=== PATIENT | female | born 1955 | race Caucasian/White ===

== ENCOUNTER 2018-05-14 12:45 | Observation (INO) | payer OTHER ==
[2018-05-14] MEDS ORDERED: KETOROLAC TROMETHAMINE 60 MG/2 ML VIAL IM ONE ×2 (13:34→13:37)
--- NOTE | 2018-05-14 13:36 | ERNOTE ---
Lower Extremity HPI - Narrative Date of Service: 05/14/18 - General Lower Extremities Pain: leg: bilateral - lymphadema Time Seen by Provider: 05/14/18 13:08 Source: patient, family Exam Limitations: no limitations - Immun/Allergies/Home Medications Immunizations: IMMUNIZATION HX Immunizations Up to Date No History of Influenza Vaccine No Hx Pneumococcal Vaccination No Allergies/Adverse Reactions: Allergies Allergy/AdvReac Type Severity Reaction Status Date / Time cat dander Allergy Verified 05/14/18 12:55 hydrocodone AdvReac Mild Headache Verified 05/14/18 12:55 Tetracyclines AdvReac Mild Nausea Verified 05/14/18 12:55 Home Medications: HOME MEDICATIONS Acetaminophen 05/14/18 [Last Taken Unknown] Benazepril HCl 10 mg PO DAILY 05/14/18 [Last Taken Unknown] Centrum Adults Tablet 05/14/18 [Last Taken Unknown] Clindamycin HCl [Cleocin] 3 tab PO QID #96 cap 05/14/18 [Last Taken Unknown] Ibuprofen 05/14/18 [Last Taken Unknown] - History of Present Illness Narrative: Patient complains of lymphadema of bilateral lower extremities that she has had for several yrs. 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 Has been to several clinics but has not continued treatment. States her has been dressing her legs trying to keep them dry. States she is not able to get into her family provider so came to the ER for evaluation. Complains that her legs are weepy and have had some ulcerations. Denies any dyspnea or chest pain. Occurred: other - Has been present for several yrs. Prior Treament: Reports: similar symptoms before Review of Systems - Review of Systems Constitutional: Present: no symptoms reported Respiratory: Present: no symptoms reported Cardiology: Present: no symptoms reported Gastrointestinal/Abdominal: Present: no symptoms reported Genitourinary: Present: no symptoms reported Musculoskeletal: Present: no symptoms reported Skin: Present: See HPI, other - Bilateral lower swelling and drainage as described. Denies any distal sensory loss. Neurological: Present: no symptoms reported Endocrine: Present: no symptoms reported Hematologic/Lymphatic: Present: no symptoms reported Psych: Present: no symptoms reported Medical History (Last Updated 05/14/18 @ 13:01 by Angelito Pope RN) Acquired lymphedema of leg HTN (hypertension) History of tonsillectomy Obesity Surgical History: Surgical History (Last Updated 05/14/18 @ 13:01 by Angelito Pope RN) History of exploratory laparotomy History of lymph node excision Social History: Preferred Language Kyrgyz Do you have any faith or Yes: babtist cultural preference? Smoking Status Current every day smoker Have you smoked in the past 12 Yes months Do you dip or chew tobacco No Alcohol Use rarely Drug Use none Physical Exam - Physical Exam General Appearance: Present: wd/wn, alert Eye Exam: Normal inspection: bilateral, PERRL: bilateral, EOMI: bilateral Neck: Present: normal inspection, nontender, full range of motion Respiratory: Present: no respiratory distress, normal breath sounds, no accessory muscle use, chest nontender, lungs clear Cardiovascular/Chest: Present: regular rate, rhythm, no murmur, normal peripheral pulses Peripheral Pulses: N=norm/S=strong/W=weak/B=bound/A=absent: Radial (R): Normal, Radial (L): Normal, Dorsalis-pedis (R): Normal, Dorsalis-pedis (L): Normal Gastrointestinal/Abdominal: Present: normal bowel sounds, nontender - Obese Extremity Exam: Present: other - Right lower extremity extending from ankle to proximal tibia significant edema with erythema and macerated tissue present. Mid posterior calf 2 stage 2 ulcerations both 1cm in size. No significant drainage present. Mildly erythematous. LLE from ankle to proximal tibia very similar presentation. However has one lateral midcalf ulceration 2.5cm stage 2. No significant drainage or signs of infection. Neurological Exam: Present: alert, oriented, normal mood/affect, no motor/ sensory deficits Skin Exam: Present: other - See extremity exam ED Progress - Results and Orders Patient's Lab Results:: I have reviewed the patient's lab results. - Vital Signs Patient's Vital Signs:: I have reviewed the patient's vital signs. Vital Signs: Vital Signs 05/14/18 12:45 Temperature 36.5 C Pulse Rate 100 Blood Pressure 137/73 O2 Sat by Pulse Oximetry 96 - EKG EKG: NSR, premature ventricular contraction - Progress/Reassessment Chief Complaint: Lower Extremity Pain/ Injury Progress:: Unchanged - Transfer of Care Additional Notes: Discussed patient with Dr. Kenny who agrees patient would benefit from observation stay for IV antibiotics and IV fluids. Further treatment and care will be per Dr. Kenny. Departure Clinical Impression: Acquired lymphedema of lower extremity, Cellulitis and abscess of left leg, Hyperkalemia Acute kidney failure Qualifiers: Acute renal failure type: unspecified Qualified Code(s): N17.9 - Acute kidney failure, unspecified - Departure Disposition: Still a patient Condition: Good
[2018-05-14 13:37] LABS: Hematocrit 46.5 % (37.0-47.0); Hemoglobin 15.4 gm/dL (12.5-16.0); Mean Cell Volume 94.1 fl (78-100); Mean Corpuscular Hemoglobin 31.2 pg (27-31); Mean Corpuscular Hgb Conc 33.1 g/dl (32-36); Mean Platelet Volume 9.9 fl (8-12.5); Neutrophil # 13.5 K/mm3 (1.3-6.0); Neutrophil % 83.9 % (42-75.0); Platelet Count 287 K/mm3 (150-450); Red Blood Count 4.94 M/mm3 (4.2-5.4); Red Cell Distribution Width 13.1 % (11.5-14.0)
[2018-05-14 13:46] LABS: Albumin * 3.3 gm/dl (3.4-5.0); Anion Gap 15.1 mmol/L (6.8-13.8); BUN/Creatinine Ratio 37.4 (9.0-21.6); Bilirubin, Total 0.3 mg/dL (0.0-1.1); Ca. Corrected For Albumin 10.5 mg/dL (8.4-10.2); Calcium * 10.3 mg/dL (7.9-10.9); Carbon Dioxide 23.5 mmol/L (24-32.6); Potassium 5.6 mmol/L (3.4-4.6); Total Protein 8.5 gm/dL (6.2-8.2)
[2018-05-14 13:52] LABS: Hemoglobin A1C 6.2 % (4.00-6.0)
[2018-05-14] MEDS ORDERED: NORMAL SALINE 1,000 ML IV PRN (14:19)
[2018-05-14] MEDS ORDERED: FUROSEMIDE 10 MG/ML VIAL IV ONE (14:20)
[2018-05-14] MEDS ORDERED: CLINDAMYCIN PHOSPHATE 600 MG in DEXTROSE 5 % IN WATER 100 ML IV ONE ×2 (14:21)
[2018-05-14] MEDS: NORMAL SALINE 1,000 ML IV PRN ×2 (14:58→21:55)
[2018-05-14] MEDS: traMADol HCL 50 MG TABLET PO PRN ×2 (16:32→20:39)
--- NOTE | 2018-05-14 19:54 | HP ---
Chief Complaint - Chief Complaint Date of Service: 05/14/18 Time of Service: 19:53 Chief Complaint: cellulitis, weeping lymphedema History of Present Illness: 62 years old female adm to the hospital from ER with reports of painful lower extremities. PMH significant for lymphedema of bilateral lower extremities > 12years, morbid obesity and Hypertension. pt stated she was last seen by PCP in Jul 2017 when she had several blisters that form ulceration and she had both legs debrided in [facility]. Since then she has been struggling with the legs and use Neosporin and gauze as dressing to the legs. She was getting therapy, wound care and massage at the center in [place]. The treatment helped a lot, but stopped several years ago due to insurance. Today she was seen in ER because the pain is unbearable, " it feels like my legs are on fire,striking sharp pain in the legs and uncontrollable drainage. In ER blood cultures obtained, cleocin given. Will continue IVF, antbx and obtain wound cultures. Plan of care discussed with pt she verbalized understanding and agrees. Medical History (Last Reviewed 05/14/18 @ 16:11 by Caro Wooten RN) Acquired lymphedema of leg HTN (hypertension) History of tonsillectomy Obesity Surgical History: Surgical History (Last Reviewed 05/14/18 @ 16:11 by Caro Wooten RN) History of exploratory laparotomy History of lymph node excision Family History: Family History (Last Updated 05/14/18 @ 20:38 by LOREN Monroe) Father Diabetes Mother Breast cancer Social History: Patient Lives/Resources With Parents Utilized Preferred Language Tuvaluan Do you have any orthodoxy or No cultural preference? Smoking Status Current every day smoker Have you smoked in the past 12 Yes months Do you dip or chew tobacco No Alcohol Use rarely Drug Use none smokes 1-2 packs daily Review Of Systems (GEN) - Review of Systems Generalized/Overall Review: Present: No Symptoms Reported EENTM: Present: No Symptoms Reported Respiratory: Present: Cough - smokers cough Cardiac: Present: No Symptoms Reported Abdominal: Present: No Symptoms Reported Genitourinary: Present: No Symptoms Reported Musculoskeletal: Present: No Symptoms Reported Neurological: Present: Weakness - chronic ans uses a munoz Skin: Present: Other - cellulitis and chronic lymphedema bilateral lower extremities >12years. weeping ulcers to right lateral calf Endocrine: Present: No Symptoms Reported Immunizations: IMMUNIZATION HX Immunizations Up to Date No History of Influenza Vaccine No Hx Pneumococcal Vaccination No Allergies/Adverse Reactions: Allergies Allergy/AdvReac Type Severity Reaction Status Date / Time cat dander Allergy Verified 05/14/18 16:12 hydrocodone AdvReac Mild Headache Verified 05/14/18 16:12 Tetracyclines AdvReac Mild Nausea Verified 05/14/18 16:12 Home Medications: HOME MEDICATIONS Benazepril HCl 10 mg PO DAILY 05/14/18 [Last Taken Unknown] Ibuprofen [Motrin Ib] 400 mg PO Q6H PRN 05/14/18 [Last Taken Unknown] Multivitamin/Iron/Folic Acid [Centrum Adults Tablet] 1 each PO DAILY 05/14/18 [ Last Taken Unknown] Exam - Exam Vital Signs: Vital Signs - Last Taken Temp 36.2 C 05/14/18 15:37 Pulse 98 05/14/18 15:37 Resp 20 05/14/18 15:37 BP 133/59 05/14/18 15:37 Pulse Ox 94 05/14/18 15:37 Constitutional: Present: Alert, Oriented x3, Cooperative, Middle aged, Morbidly obese ENT Exam: Present: hearing grossly normal Eye Exam: bilateral eye: normal inspection Neck: Present: full range of motion Back Exam: Present: normal inspection Breasts: Present: Exam deferred Respiratory: Present: chest non-tender, no respiratory distress, no accessory muscle use, decreased breath sounds, rhonchi Cardiovascular/Chest: Present: normal peripheral pulses, regular rate, rhythm, no chest tenderness, no edema Peripheral Pulses: dorsalis-pedis (R): 2+, dorsalis-pedis (L): 2+ Abdomen: Present: Normal bowel sounds, soft, nontender, nondistended /Rectal: Present: Exam deferred Extremity: Present: calf tenderness, inflammation, lower extremity edema, pedal edema Skin Exam: Present: other - cellulitis,weeping lymphedema and abscess, inflammation Neurologic: Present: normal mood/affect, oriented x 3 Appearance: Present: appropriate appearance Eye contact: Present: cooperative, good eye contact Thoughts: Present: normal thought pattern Diagnostic Studies: Abnormal Lab Results 05/14/18 05/14/18 05/14/18 Range/Units 13:29 13:29 13:29 WBC 16.0 H (4.0-10.5) K/mm3 MCH 31.2 H (27-31) pg Immature Gran % (Auto) 0.60 H (0.001-0.429) % Immature Gran # (Auto) 0.09 H (0.000-0.0310) K/mm3 Neutrophils % 83.9 H (42-75.0) % Lymphocytes % 8.0 L (20-51) % Neutrophils # 13.5 H (1.3-6.0) K/mm3 Lymphocytes # 1.29 L (1.5-3.5) k/mm3 Sodium 130 L (132-142) mmol/L Potassium 5.6 H (3.4-4.6) mmol/L Carbon Dioxide 23.5 L (24-32.6) mmol/L Anion Gap 15.1 H (6.8-13.8) mmol/L BUN 92 H (3-23) mg/dL Creatinine 2.46 H (0.4-1.4) mg/dL Est GFR (Non-Af Amer) 21 L (60-130) mL/min BUN/Creatinine Ratio 37.4 H (9.0-21.6) Random Glucose 118 H (70-110) mg/dL Hemoglobin A1c 6.2 H (4.00-6.0) % Calcium Adj for Albumin 10.5 H (8.4-10.2) mg/dL Total Protein 8.5 H (6.2-8.2) gm/dL Albumin 3.3 L (3.4-5.0) gm/dl Laboratory Results WBC 16.0 K/mm3 (4.0-10.5) H 05/14/18 13:29 RBC 4.94 M/mm3 (4.2-5.4) 05/14/18 13:29 Hgb 15.4 gm/dL (12.5-16.0) 05/14/18 13:29 Hct 46.5 % (37.0-47.0) 05/14/18 13:29 MCV 94.1 fl (78-100) 05/14/18 13:29 MCH 31.2 pg (27-31) H 05/14/18 13:29 MCHC 33.1 g/dl (32-36) 05/14/18 13:29 RDW 13.1 % (11.5-14.0) 05/14/18 13:29 Plt Count 287 K/mm3 (150-450) 05/14/18 13:29 MPV 9.9 fl (8-12.5) 05/14/18 13:29 Immature Gran % (Auto) 0.60 % (0.001-0.429) H 05/14/18 13:29 Immature Gran # (Auto) 0.09 K/mm3 (0.000-0.0310) H 05/14/18 13:29 Neutrophils % 83.9 % (42-75.0) H 05/14/18 13:29 Lymphocytes % 8.0 % (20-51) L 05/14/18 13:29 Monocytes % 6.2 % (0.0-9) 05/14/18 13:29 Eosinophils % 0.9 % (0.0-3.0) 05/14/18 13:29 Basophils % 0.4 % (0.0-1.0) 05/14/18 13:29 Nucleated RBC % 0.0 k/mm3 (0-1) 05/14/18 13:29 Neutrophils # 13.5 K/mm3 (1.3-6.0) H 05/14/18 13:29 Lymphocytes # 1.29 k/mm3 (1.5-3.5) L 05/14/18 13:29 Monocytes # 1.0 k/mm3 (0.0-1.0) 05/14/18 13:29 Eosinophils # 0.1 k/mm3 (0.0-0.7) 05/14/18 13:29 Absolute Basophils 0.1 k/mm3 (0.0-0.1) 05/14/18 13:29 Sodium 130 mmol/L (132-142) L 05/14/18 13:29 Plasma Sodium 130 mmol/L (130-142) 05/14/18 13:29 Potassium 5.6 mmol/L (3.4-4.6) H 05/14/18 13:29 Chloride 97 mmol/L (97-106) 05/14/18 13:29 Carbon Dioxide 23.5 mmol/L (24-32.6) L 05/14/18 13:29 Anion Gap 15.1 mmol/L (6.8-13.8) H 05/14/18 13:29 BUN 92 mg/dL (3-23) H 05/14/18 13:29 Creatinine 2.46 mg/dL (0.4-1.4) H 05/14/18 13:29 Est GFR (Non-Af Amer) 21 mL/min (60-130) L 05/14/18 13:29 BUN/Creatinine Ratio 37.4 (9.0-21.6) H 05/14/18 13:29 Random Glucose 118 mg/dL (70-110) H 05/14/18 13:29 Mean Blood Glucose 120 mg/dL 05/14/18 13:29 Hemoglobin A1c 6.2 % (4.00-6.0) H 05/14/18 13:29 Lactic Acid, Venous 0.9 mmol/L (0.4-2.0) 05/14/18 13:36 Calcium 10.3 mg/dL (7.9-10.9) 05/14/18 13:29 Calcium Adj for Albumin 10.5 mg/dL (8.4-10.2) H 05/14/18 13:29 Total Bilirubin 0.3 mg/dL (0.0-1.1) 05/14/18 13:29 AST 34 U/L (0-48) 05/14/18 13:29 ALT 61 U/L (19-67) 05/14/18 13:29 Alkaline Phosphatase 103 U/L (50-170) 05/14/18 13:29 Total Protein 8.5 gm/dL (6.2-8.2) H 05/14/18 13:29 Albumin 3.3 gm/dl (3.4-5.0) L 05/14/18 13:29 Assessment/Plan - Assessment/Plan (1) Diabetes Assessment: Accu-check AC+HS and low dose sliding scale On adm A1C 6.2, Random glucose 118 consistent carb diet Problem: Acute (2) Smoker unmotivated to quit Assessment: nicotine patches Problem: Chronic (3) Acquired lymphedema of lower extremity Assessment: pt stated she had condition for over 12years Bilateral LE with some cellulites Keep legs elevated and wrapped. Pt however refused to have legs wrapped. Problem: Acute (4) Cellulitis and abscess of left leg Assessment: On adm WBC 16, she had a large abscess to the left leg that draining more than the right Continue with IV cleocin and monitor CBC in am Blood culture and wound cultures pending Problem: Acute (5) Acute kidney failure Assessment: On adm Bun/Cre 92/2.46 ,GFR 21. She had a dose of Lasix in ER which may increase the Cre tomorrow pt don't have a documented baseline to make comparison unclear if its just acute or acute on chronic. Acute component due to volume depletion from decreased oral intake and constant weeping of the ulcers Continue with IVF, monitor CMP in the morning She was using Motrin and Benazepril while at home, will hold for now while in [facility] Problem: Acute Qualifiers: Acute renal failure type: unspecified Qualified Code(s): N17.9 - Acute kidney failure, unspecified (6) Hyperkalemia Problem: Acute (7) Hypertension Assessment: stable may hole CHAVA for now while in [facility] Monitor Vital signs q shift Problem: Chronic
[2018-05-14] MEDS ORDERED: IBUPROFEN 200 MG TABLET PO PRN (20:28)
[2018-05-14] MEDS ORDERED: NICOTINE 21 MG PATC TD SCH (20:30)
[2018-05-14] MEDS ORDERED: ACETAMINOPHEN 325 MG TABLET PO PRN (20:56)
[2018-05-14] MEDS: HEPARIN SODIUM,PORCINE 5,000 UNITS/ML VIAL SC SCH (21:05)
[2018-05-14] MEDS: CLINDAMYCIN PHOSPHATE 600 MG in DEXTROSE 5 % IN WATER 100 ML IV SCH ×2 (21:55)
[2018-05-15 04:24] LABS: Hematocrit 35.9 % (37.0-47.0); Hemoglobin 11.6 gm/dL (12.5-16.0); Mean Corpuscular Hemoglobin 30.7 pg (27-31); Mean Corpuscular Hgb Conc 32.3 g/dl (32-36); Mean Platelet Volume 9.7 fl (8-12.5); Neutrophil % 78.3 % (42-75.0); Platelet Count 207 K/mm3 (150-450); Red Blood Count 3.78 M/mm3 (4.2-5.4); Red Cell Distribution Width 13.1 % (11.5-14.0); White Blood Count 11.5 K/mm3 (4.0-10.5)
[2018-05-15 04:41] LABS: BUN/Creatinine Ratio 39.3 (9.0-21.6); Bilirubin, Total 0.3 mg/dL (0.0-1.1); Ca. Corrected For Albumin 9.2 mg/dL (8.4-10.2); Calcium * 7.9 mg/dL (7.9-10.9); Carbon Dioxide 22.6 mmol/L (24-32.6); Potassium 5.6 mmol/L (3.4-4.6); Total Protein 5.6 gm/dL (6.2-8.2)
[2018-05-15] MEDS: traMADol HCL 50 MG TABLET PO PRN (04:49)
[2018-05-15] MEDS: NORMAL SALINE 1,000 ML IV PRN ×2 (04:50→11:48)
[2018-05-15] MEDS: CLINDAMYCIN PHOSPHATE 600 MG in DEXTROSE 5 % IN WATER 100 ML IV SCH ×2 (05:04)
--- NOTE | 2018-05-15 06:39 | PN ---
Subjective - Date and Time Seen Date: 05/15/18 Time: 06:34 Subjective Narrative: patient seen no changes overnight she report her legs still feel like they are on fire. still with significant amount drainage. Objective - Review of Systems Generalized/Overall Review: Reports: No Symptoms Reported EENTM: Reports: No Symptoms Reported Respiratory: Reports: No Symptoms Reported Cardiac: Reports: No Symptoms Reported Abdominal: Reports: No Symptoms Reported Genitourinary Symptoms: Reports: Dysuria Musculoskeletal Complaints: Reports: No Symptoms Reported Neurological: Reports: No Symptoms Reported Skin: Reports: Other - lymphedema, cellulitis, drainging abscess Endocrine: Reports: No Symptoms Reported - Vitals Vitals: Last Vital Signs Temp 36.7 C 05/15/18 03:13 Pulse 78 05/15/18 03:13 Resp 18 05/15/18 03:13 BP 98/40 05/15/18 03:13 Pulse Ox 92 L 05/15/18 03:13 - Abnormal Lab Findings Abnormal Lab Findings: Abnormal Lab Results 05/14/18 05/14/18 05/14/18 Range/Units 13:29 13:29 13:29 WBC 16.0 H (4.0-10.5) K/mm3 RBC (4.2-5.4) M/mm3 Hgb (12.5-16.0) gm/dL Hct (37.0-47.0) % MCH 31.2 H (27-31) pg Immature Gran % (Auto) 0.60 H (0.001-0.429) % Immature Gran # (Auto) 0.09 H (0.000-0.0310) K/mm3 Neutrophils % 83.9 H (42-75.0) % Lymphocytes % 8.0 L (20-51) % Neutrophils # 13.5 H (1.3-6.0) K/mm3 Lymphocytes # 1.29 L (1.5-3.5) k/mm3 Sodium 130 L (132-142) mmol/L Potassium 5.6 H (3.4-4.6) mmol/L Carbon Dioxide 23.5 L (24-32.6) mmol/L Anion Gap 15.1 H (6.8-13.8) mmol/L BUN 92 H (3-23) mg/dL Creatinine 2.46 H (0.4-1.4) mg/dL Est GFR (Non-Af Amer) 21 L (60-130) mL/min BUN/Creatinine Ratio 37.4 H (9.0-21.6) Random Glucose 118 H (70-110) mg/dL Hemoglobin A1c 6.2 H (4.00-6.0) % Calcium Adj for Albumin 10.5 H (8.4-10.2) mg/dL Total Protein 8.5 H (6.2-8.2) gm/dL Albumin 3.3 L (3.4-5.0) gm/dl 05/15/18 05/15/18 Range/Units 04:05 04:05 WBC 11.5 H D (4.0-10.5) K/mm3 RBC 3.78 L (4.2-5.4) M/mm3 Hgb 11.6 L (12.5-16.0) gm/dL Hct 35.9 L (37.0-47.0) % MCH (27-31) pg Immature Gran % (Auto) 0.50 H (0.001-0.429) % Immature Gran # (Auto) 0.06 H (0.000-0.0310) K/mm3 Neutrophils % 78.3 H (42-75.0) % Lymphocytes % 11.8 L (20-51) % Neutrophils # 9.0 H (1.3-6.0) K/mm3 Lymphocytes # 1.36 L (1.5-3.5) k/mm3 Sodium 130 L (132-142) mmol/L Potassium 5.6 H (3.4-4.6) mmol/L Carbon Dioxide 22.6 L (24-32.6) mmol/L Anion Gap (6.8-13.8) mmol/L BUN 86 H (3-23) mg/dL Creatinine 2.19 H (0.4-1.4) mg/dL Est GFR (Non-Af Amer) 24 L (60-130) mL/min BUN/Creatinine Ratio 39.3 H (9.0-21.6) Random Glucose 115 H (70-110) mg/dL Hemoglobin A1c (4.00-6.0) % Calcium Adj for Albumin (8.4-10.2) mg/dL Total Protein 5.6 L (6.2-8.2) gm/dL Albumin 2.0 L (3.4-5.0) gm/dl - Exam Constitutional: Present: Alert, Oriented x3, Cooperative, No distress, Morbidly obese Neck: Present: non-tender, full range of motion Breasts: Present: Exam deferred Respiratory: Present: chest non-tender, normal breath sounds, decreased breath sounds Cardiovascular/Chest: Present: normal peripheral pulses, regular rate, rhythm, no chest tenderness, edema Abdomen: Present: Normal bowel sounds, soft, nontender /Rectal: Present: Exam deferred Extremity: Present: normal range of motion, lower extremity edema, leg pain, pedal edema, slow capillary refill, swelling, other - cellulitis, lymphedema Skin Exam: Present: other - cellulitis and lymphedema Neurologic: Present: normal mood/affect, oriented x 3 Appearance: Present: appropriate appearance Eye contact: Present: cooperative, good eye contact Thoughts: Present: normal thought pattern Assessment/Plan Plan Narrative: Continue with abtibiotic, IVf and monitor CBC and cmp Na+ and K+ leveles remains the same despite IVF TERRY improving gradually continue to monitor WBC trending down and no fevers Consulted wound center to potentially see pt and for recommendations - Problems/Diagnosis (1) Diabetes Problem: Acute (2) Smoker unmotivated to quit Problem: Chronic (3) Acquired lymphedema of lower extremity Problem: Acute (4) Cellulitis and abscess of left leg Problem: Acute (5) Acute kidney failure Problem: Acute Qualifiers: Acute renal failure type: unspecified Qualified Code(s): N17.9 - Acute kidney failure, unspecified (6) Hyperkalemia Problem: Acute (7) Hypertension Problem: Chronic
[2018-05-15] MEDS: HEPARIN SODIUM,PORCINE 5,000 UNITS/ML VIAL SC SCH (08:31)
[2018-05-15] MEDS ORDERED: ENALAPRIL MALEATE 5 MG TABLET PO SCH (09:00)
[2018-05-15] MEDS ORDERED: MULTIVITAMIN/IRON/FOLIC ACID 1 TAB TABLET PO SCH (09:00)
--- NOTE | 2018-05-15 14:13 | DS ---
(1) Acute kidney injury Problem: Acute (2) Erysipelas of lower extremity Problem: Acute (3) Cellulitis Problem: Acute (4) Lower extremity edema Problem: Acute (5) Acquired lymphedema of lower extremity Problem: Chronic (6) Hyperkalemia Problem: Acute Description of Stay: ADMISSION DATE: 05/14/2018 DISCHARGE DATE: 05/15/2018 ADMISSION HPI by LOREN Monroe: 62 years old female adm to the hospital from ER with reports of painful lower extremities. PMH significant for lymphedema of bilateral lower extremities > 12years, morbid obesity and Hypertension. pt stated she was last seen by PCP in Jul 2017 when she had several blisters that form ulceration and she had both legs debrided in [facility]. Since then she has been struggling with the legs and use Neosporin and gauze as dressing to the legs. She was getting therapy, wound care and massage at the center in [place]. The treatment helped a lot, but stopped several years ago due to insurance. Today she was seen in ER because the pain is unbearable, " it feels like my legs are on fire,striking sharp pain in the legs and uncontrollable drainage. In ER blood cultures obtained, cleocin given. Will continue IVF, antbx and obtain wound cultures. Plan of care discussed with pt she verbalized understanding and agrees. HOSPITAL COURSE: The patient was admitted to observation status for lower extremity cellulitis related to her chronic lower extremity edema, venous stasis and lymphedema. The patient was also found to have [facility] with hyperkalemia and was treated with IVF hydration while in the hospital. Nephrotoxic medications were avoided and medications were renally dosed. The patient was also treated with IV antibiotics during her hospital stay and was transitioned to oral antibiotics on discharge. I discussed the importance of close follow-up and re-establishing with the wound center for ongoing, long-term care. The patient was discharged home in stable condition. FOLLOW-UP APPOINTMENTS: -Follow-up with PCP within 1 week. Recheck BMP at follow-up visit with PCP to monitor kidney function and potassium level. -Hold home benazapril until follow-up with PCP -Referral to podiatry for foot cares NEW OR CHANGED MEDICATIONS: -Keflex 250mg PO BID X 10 days (renally dosed) - Tramadol 50mg PO TID PRN severe pain patient given a written prescription for #25 DISCONTINUED MEDICATIONS: -Patient instructed to avoid all NSAIDs Procedures Performed: none Results and Findings: Pending Mircobiology Results 05/14/18 20:31 Leg - Left Wound Culture - Preliminary No Growth Lab Pending Results 05/14/18 13:29: WBC 16.0 H, RBC 4.94, Hgb 15.4, Hct 46.5, MCV 94.1, MCH 31.2 H, MCHC 33.1, RDW 13.1, Plt Count 287, MPV 9.9, Immature Gran % (Auto) 0.60 H, Immature Gran # (Auto) 0.09 H, Neutrophils % 83.9 H, Lymphocytes % 8.0 L, Monocytes % 6.2, Eosinophils % 0.9, Basophils % 0.4, Nucleated RBC % 0.0, Neutrophils # 13.5 H, Lymphocytes # 1.29 L, Monocytes # 1.0, Eosinophils # 0.1, Absolute Basophils 0.1 05/14/18 13:29: Sodium 130 L, Plasma Sodium 130, Potassium 5.6 H, Chloride 97, Carbon Dioxide 23.5 L, Anion Gap 15.1 H, BUN 92 H, Creatinine 2.46 H, Est GFR ( Non-Af Amer) 21 L, BUN/Creatinine Ratio 37.4 H, Random Glucose 118 H, Calcium 10.3, Calcium Adj for Albumin 10.5 H, Total Bilirubin 0.3, AST 34, ALT 61, Alkaline Phosphatase 103, Total Protein 8.5 H, Albumin 3.3 L 05/14/18 13:29: Mean Blood Glucose 120, Hemoglobin A1c 6.2 H 05/14/18 13:36: Lactic Acid, Venous 0.9 05/15/18 04:05: WBC 11.5 H D, RBC 3.78 L, Hgb 11.6 L, Hct 35.9 L, MCV 95.0, MCH 30.7, MCHC 32.3, RDW 13.1, Plt Count 207, MPV 9.7, Immature Gran % (Auto) 0.50 H , Immature Gran # (Auto) 0.06 H, Neutrophils % 78.3 H, Lymphocytes % 11.8 L, Monocytes % 7.9, Eosinophils % 1.2, Basophils % 0.3, Nucleated RBC % 0.0, Neutrophils # 9.0 H, Lymphocytes # 1.36 L, Monocytes # 0.9, Eosinophils # 0.1, Absolute Basophils 0.0 05/15/18 04:05: Sodium 130 L, Plasma Sodium 130, Potassium 5.6 H, Chloride 100, Carbon Dioxide 22.6 L, Anion Gap 13.0, BUN 86 H, Creatinine 2.19 H, Est GFR (Non -Af Amer) 24 L, BUN/Creatinine Ratio 39.3 H, Random Glucose 115 H, Calcium 7.9, Calcium Adj for Albumin 9.2, Total Bilirubin 0.3, AST 20, ALT 39, Alkaline Phosphatase 72, Total Protein 5.6 L, Albumin 2.0 L Discharge Location: Home Disposition: Home self-care Condition: Stable Discharge Activity: Activity as tolerated Discharge Diet: Low salt, Low Potassium Referrals: Justyna Cooper MD [Primary Care Provider] - Problem Oriented Discharge Instructions to Patient/Family: Acute Kidney Injury , Cellulitis, Adult, [id number] Additional Patient Instructions (free text): -Follow-up with Dr. Justyna Cooper Friday, May 25, 2018, at 11:00 AM Recheck BMP at follow-up visit with PCP to monitor kidney function and potassium level. -Hold home benazapril until follow-up with PCP -Referral to podiatry for foot cares. Appointment with Dr. Naylor on Tuesday, August 07, 2018, at 10:00 AM at [facility]. Prescriptions (Any new or edited meds): Cephalexin Monohydrate [Keflex] 250 mg PO Q12H 10 Days #20 cap traMADol HCL [Ultram] 50 mg PO TID PRN #25 tab PRN Reason: Severe Pain (Pain Scale 7-10) Complete Home Medications List: Complete Home Medication List: Benazepril HCl 10 mg PO DAILY 05/14/18 Multivitamin/Iron/Folic Acid [Centrum Adults Tablet] 1 each PO DAILY 05/14/18 Acetaminophen [Tylenol] 650 mg PO Q6H PRN tablet 05/15/18 Cephalexin Monohydrate [Keflex] 250 mg PO Q12H 10 Days #20 cap 05/15/18 traMADol HCL [Ultram] 50 mg PO TID PRN #25 tab 05/15/18 Amb Orders for Discharge: Basic Metabolic Panel Time Frame: 1 Week, Location: None Selected
[2018-05-15 14:48] VITALS: BP 125/41
== END 2018-05-15 15:11 | disposition home or self-care (01) ==
LOC: ER 12:45 → MS 12:45
PROVIDERS: ADMIT Internal Medicine; ATTEND Internal Medicine
CPT/HCPCS: 36415; 80053; 83036; 83605; 85025; 87040; 87070; 87077; 87186; 93005; 96361; 96365; 96366; 96372; 96375; 99284; G0378